=== PATIENT | female | born 1985 | race African-American/Black ===

== ENCOUNTER 2017-06-02 22:07 | Emergency (ER) | payer MEDICAID, OTHER ==
[~2017-06-02] VITALS: Ht 160 cm; Wt 61.2 kg
[2017-06-02 22:09] VITALS: BP 129/77
[2017-06-02 22:20] VITALS: BP 129/77
[2017-06-02] MEDS ORDERED: IBUPROFEN600 MG ORAL (22:27)
[2017-06-02] MEDS ORDERED: CYCLOBENZAPRINE10 MG ORAL (22:27)
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
== END 2017-06-02 22:32 | disposition home or self-care (01) ==
LOC: EMR 22:30
DX: M54.2 Cervicalgia (principal); S16.1XXA Strain of muscle, fascia and tendon at neck level, initial encounter; S39.012A Strain of muscle, fascia and tendon of lower back, initial encounter; V49.9XXA Car occupant (driver) (passenger) injured in unspecified traffic accident, initial encounter; Y93.9 Activity, unspecified; Y92.481 Parking lot as the place of occurrence of the external cause; Y99.9 Unspecified external cause status
CPT/HCPCS: 99283